=== PATIENT | male | born 1965 | race Caucasian/White ===

== ENCOUNTER 2016-10-05 08:05 | Day surgery (SDC) | payer BC ==
[2016-10-05] VITALS (12 sets, daily range): BP systolic 94–117; BP diastolic 59–72; PULSE 66–78; RESP 12–24; TEMP 97.6–97.9; O2SAT 93–100; Ht 177.8 cm; Wt 83.5 kg
[~2016-10-05] VITALS: Ht 177.8 cm; Wt 83.5 kg
[~2016-10-05 08:05] MED LIST: LIDOCAINE 1% (10mg/ml) 2ml SDV INJ ONE; LR 1,000 ML IV SCH; MELA3TAB30 PO; METF500T7 PO; MULT-933 PO; TOPI25TA64 PO; VILA40TA PO; ZOLP10TA6 PO
--- OUTSIDE RECORDS SUMMARY | 2016-10-05 08:09 | XMS REPORT | Continuity of Care Document ---
Author Author [facility] Organization [facility] Address Unknown Phone Unavailable Allergies Active Description Code Type Severity Reaction Onset Reported/Identified Relationship to Patient Clinical Status Yes No Known Allergies NKMA N/A N/A 08/13/2014 Medications Problems Procedures Results Encounters ACCT No. Visit Date/Time Discharge Status Pt. Type Provider Facility Loc./Unit Complaint [id number] 08/01/2013 09:56:00 08/01/2013 23 :59:59 CLS Outpatient
--- OUTSIDE RECORDS SUMMARY | 2016-10-05 08:09 | XMS REPORT | Referral Summary ---
Author Organization Unknown Address Unknown Phone Unavailable Care Team Providers Care Hobbing Machine Operator Name Role Phone Jani Lawrence Primary Care Physician [phone] Encounter VC Date(s): 08/18/14 - 08/18/14 [facility] [address] [place] [id number] Discharge Diagnosis: Bipolar disorder Discharge Diagnosis: ED (erectile dysfunction) Discharge Diagnosis: BPH NOS w/o ur obs/LUTS Discharge Diagnosis: URINARY FREQUENCY Discharge Disposition: Home or Self Care Attending Physician: Vinay Lawrence MD Admitting Physician: Vinay Lawrence MD Vital Signs Most recent to 1 oldest [Reference Range]: Temperature Tympanic 36.4 degC [36.6-38.1 degC] *LOW* (08/18/14 2:52 PM) Peripheral Pulse 96 bpm Rate [60-100 bpm] (08/18/14 2:52 PM) Respiratory Rate 16 br/min [14-20 br/min] (08/18/14 2:52 PM) Blood Pressure 134/90 mmHg [90-140/60-90 mmHg] (08/18/14 2:52 PM) Problem List No data available for this section Allergies, Adverse Reactions, Alerts No Known Allergies Medications Cialis 5 mg oral tablet 1 tabs, Oral, Daily, # 30 tabs, 0 Refill(s), samples given to patient (Rx) Start Date: 08/18/14 Status: Ordered Invega 3 mg oral tablet, extended release 1 tabs, Oral, qAM, # 30 tabs, 0 Refill(s) Start Date: 08/18/14 Status: Ordered Results Urinalysis Most recent to 1 oldest [Reference Range]: UA Color Yellow (08/18/14 3:00 PM) UA Appear Clear (08/18/14 3:00 PM) UA pH [5.0-8.0] 6.0 (08/18/14 3:00 PM) UA Leuk Est Negative [Negative] (08/18/14 3:00 PM) UA Nitrite Negative [Negative] (08/18/14 3:00 PM) UA Protein Negative [Negative] (08/18/14 3:00 PM) UA Glucose Negative [Negative] (08/18/14 3:00 PM) UA Ketones Negative [Negative] (08/18/14 3:00 PM) UA Urobilinogen 0.2 mg/dL (08/18/14 3:00 PM) UA Bili [Negative] Negative (08/18/14 3:00 PM) UA Blood Negative (08/18/14 3:00 PM) UA Spec Grav 1.015 [1.003-1.030] (08/18/14 3:00 PM) Type Clean Catch (08/18/14 3:00 PM) Immunizations No data available for this section Procedures No data available for this section Social History Social History Type Response Smoking Status Never smoker Assessment and Plan Extracted from: Title: Ambulatory Patient Education Author: Vinay Lawrence MD Date: Family Medicine Urinary Frequency The number of times a normal person urinates depends upon how much liquid they take in and how much liquid they are losing. If the temperature is hot and there is high humidity then the person will sweat more and usually breathe a little more frequently. These factors decrease the amount of frequency of urination that would be considered normal. The amount you drink is easily determined, but the amount of fluid lost is sometimes more difficult to calculate. Fluid is lost in two ways: Sensible fluid loss is usually measured by the amount of urine that you get rid of. Losses of fluid can also occur with diarrhea. Insensible fluid loss is more difficult to measure. It is caused by evaporation. Insensible loss of fluid occurs through breathing and sweating. It usually ranges from a little less than a quart to a little more than a quart of fluid a day. In normal temperatures and activity levels the average person may urinate 4 to 7 times in a 24-hour period. Needing to urinate more often than that could indicate a problem. If one urinates 4 to 7 times in 24 hours and has large volumes each time, that could indicate a different problem from one who urinates 4 to 7 times a day and has small volumes. The time of urinating is also an important. Most urinating should be done during the waking hours. Getting up at night to urinate frequently can indicate some problems. CAUSES The bladder is the organ in your lower abdomen that holds urine. Like a balloon , it swells some as it fills up. Your nerves sense this and tell you it is time to head for the bathroom. There are a number of reasons that you might feel the need to urinate more often than usual. They include: Urinary tract infection. This is usually associated with other signs such as burning when you urinate. In men, problems with the prostate (a walnut-size gland that is located near the tube that carries urine out of your body). There are two reasons why the prostate can cause an increased frequency of urination: An enlarged prostate that does not let the bladder empty well. If the bladder only half empties when you urinate then it only has half the capacity to fill before you have to urinate again. The nerves in the bladder become more hypersensitive with an increased size of the prostate even if the bladder empties completely. . Obesity. Excess weight is more likely to cause a problem for women more than for men. Bladder stones or other bladder problems. Caffeine. Alcohol. Medications. For example, drugs that help the body get rid of extra fluid ( diuretics ) increase urine production. Some other medicines must be taken with lots of fluids. Muscle or nerve weakness. This might be the result of a spinal cord injury , a stroke, multiple sclerosis or Parkinson's disease. Long-standing diabetes can decrease the sensation of the bladder. This loss of sensation makes it harder to sense the bladder needs to be emptied. Over a period of years the bladder is stretched out by constant overfilling. This weakens the bladder muscles so that the bladder does not empty well and has less capacity to fill with new urine. Interstitial cystitis (also called painful bladder syndrome). This condition develops because the tissues that line the insider of the bladder are inflamed (inflammation is the body's way of reacting to injury or infection). It causes pain and frequent urination. It occurs in women more often than in men. DIAGNOSIS To decide what might be causing your urinary frequency, your healthcare provider will probably: Ask about symptoms you have noticed. Ask about your overall health. This will include questions about any medications you are taking. Do a physical examination. Order some tests. These might include: A blood test to check for diabetes or other health issues that could be contributing to the problem. Urine testing. This could measure the flow of urine and the pressure on the bladder. A test of your neurological system (the brain, spinal cord and nerves). This is the system that senses the need to urinate. A bladder test to check whether it is emptying completely when you urinate. Cytoscopy. This test uses a thin tube with a tiny camera on it. It offers a look inside your urethra and bladder to see if there are problems. Imaging tests. You might be given a contrast dye and then asked to urinate. X-rays are taken to see how your bladder is working. TREATMENT It is important for you to be evaluated to determine if the amount or frequency that you have is unusual or abnormal. If it is found to be abnormal the cause should be determined and this can usually be found out easily. Depending upon the cause treatment could include medication, stimulation of the nerves, or surgery. There are not too many things that you can do as an individual to change your urinary frequency. It is important that you balance the amount of fluid intake needed to compensate for your activity and the temperature. Medical problems will be diagnosed and taken care of by your physician. There is no particular bladder training such as Kegel's exercises that you can do to help urinary frequency. This is an exercise this is usually done for people who have leaking of urine when they laugh cough or sneeze. HOME CARE INSTRUCTIONS Take any medications your healthcare provider prescribed or suggested. Follow the directions carefully. Practice any lifestyle changes that are recommended. These might include: Drinking less fluid or drinking at different times of the day. If you need to urinate often during the night, for example, you may need to stop drinking fluids early in the evening. Cutting down on caffeine or alcohol. They both can make you need to urinate more often than normal. Caffeine is found in coffee, tea and sodas. Losing weight, if that is recommended. Keep a journal or a log. You might be asked to record how much you drink and when and when you feel the need to urinate. This will also help evaluate how well the treatment provided by your physician is working. SEEK MEDICAL CARE IF: Your need to urinate often gets worse. You feel increased pain or irritation when you urinate. You notice blood in your urine. You have questions about any medications that your healthcare provider recommended. You notice blood, pus or swelling at the site of any test or treatment procedure. You develop a fever of more than 100.5 F (38.1 C). SEEK IMMEDIATE MEDICAL CARE IF: You develop a fever of more than 102.0 F (38.9 C). Document Released: 03/25/2010 Document Revised: 08/20/2012 Document Reviewed: [facility] Patient Information 2014 [employer]. No follow up information was provided. Extracted from: Title: Office Visit Note Author: Vinay Lawrence MD Date: 08/18/14 Assessment/Plan Bipolar disorder She will continue to follow with his psychiatrist no change in his treatment recommended Ordered: Office Visit Level 4 Est 43481 BPH NOS w/o ur obs/LUTS He has some symptoms suggestive of BPH and has a mildly enlarged prostate on exam. I did give him samples of Cialis 5 mg a day since he's having some PD problems as well we'll see how this works. Ordered: Office Visit Level 4 Est 56945 ED (erectile dysfunction) Cialis 5 mg daily samples given for a month. Keep me posted on how it is doing. Ordered: Office Visit Level 4 Est 08826 URINARY FREQUENCY UA obtained. Laboratory studies ordered. We'll see if this improves on the Cialis. Ordered: Office Visit Level 4 Est 18214 Orders: tadalafil, 1 tabs, Oral, Daily, # 30 tabs, 0 Refill(s), samples given to patient (Rx)
--- OUTSIDE RECORDS SUMMARY | 2016-10-05 08:09 | XMS REPORT | Continuity of Care Document ---
Author Author Karime Cantu [facility] Address Unknown Phone Unavailable Payers Payer name Insurance type Covered libertarian ID Authorization(s) Unknown Problems Condition Effective Dates (start - stop) Clinical Status Final Inspection Supervisor's permit PE (physical examination) - *Routine Bipolar 1 disorder - *Stable Family History Family Member Diagnosis Age At Onset Status Unknown Social History Social History Element Description Quantity Unknown Allergies, Adverse Reactions, Alerts Substance Reaction Severity Status Unknown Medications Medication Instructions Dosage Effective Dates (start - stop) Status Latuda 40 mg tablet take 1 tablet (40MG) by oral route every day with food ( at least 350 calories) 40 MG - Active Immunizations Vaccine Date Status Comments Unknown Results Test Name Date and Time Measure Units Reference Range Abnormal Flag Comments Panel Description: Urinalysis-Dipstick Site. 09:55:00 MID Color 09:55:00 Straw Clarity 09:55:00 Clear Specific [place]-C 09:55:00 1.020 1.005-1.025 pH-C 09:55:00 6 5.0-8.0 Leukocytes-C 09:55:00 neg Ze/uL Negative Nitrites-C 09:55:00 neg Negative Protein-C 09:55:00 neg mg/dL Negative KC-Wggjshi-A 09:55:00 norm mg/dL Normal Ketones-C 09:55:00 neg mg/dL Negative Urobilinogen-C 09:55:00 norm mg/dL Normal Bilirubin-C 09:55:00 neg mg/dL Negative Blood-C 09:55:00 neg Cuauhtemoc/uL Negative Vital Signs Date / Time: Height Weight Pulse Rate Blood Pressure Temperature /09:59:00 70.00 in 209.00 lbs 84 /min 118/78 mm[Hg] 97.2 F Procedures Procedure Date Unknown Encounters Encounter Location Date Patient Visit [facility] Advance Directives Directive Effective Date Unknown
--- OUTSIDE RECORDS SUMMARY | 2016-10-05 08:09 | XMS REPORT | Referral Summary ---
Author Author [facility] Care Organization [facility] Address Unknown Phone Unavailable Care Team Providers Care Medical Affairs Manager Name Role Phone Jani Lawrence Primary Care Physician [phone] Encounter VC Date(s): 05/19/15 - 05/19/15 [facility] [address] [place] [address]- Discharge Diagnosis: Cough Discharge Diagnosis: Viral bronchitis Discharge Diagnosis: Nasal congestion Discharge Disposition: 01-Home or Self Care Attending Physician: Dangelo Boo PA-C Admitting Physician: Dangelo Boo PA-C Vital Signs Most recent to 1 oldest [Reference Range]: Temperature Tympanic 36.6 degC [36.6-38.1 degC] (05/19/15 1:29 PM) Apical Heart Rate 101 bpm [60-100 bpm] *HI* (05/19/15 1:29 PM) Blood Pressure 124/78 mmHg [90-140/60-90 mmHg] (05/19/15 1:29 PM) SpO2 97 % (05/19/15 1:29 PM) Problem List Condition Effective Dates Status Health Status Informant Anxiety(Confirmed)1 Active Bipolar 1 Active disorder(Confirmed)2 Depression(Confirmed Active )3 1Via patient history form 2Via patient history form 3Via patient history form Allergies, Adverse Reactions, Alerts No Known Allergies Medications albuterol CFC free 90 mcg/inh inhalation aerosol 2 puffs, Inhalation, q6hr, as needed for wheezing, # 18 g, 0 Refill(s), Pharmacy : [facility] #[id number] Start Date: 05/19/15 Status: Ordered Ambien 10 mg oral tablet 10 mg 1 tabs, Oral, Bedtime (once a day), as needed for sleep, 0 Refill(s) Start Date: 05/19/15 Status: Ordered Cialis 5 mg oral tablet 1 tabs, Oral, Daily, # 30 tabs, 0 Refill(s), samples given to patient (Rx) Start Date: 08/18/14 Status: Ordered Fanapt 8 mg oral tablet mg tabs, Oral, BID, 0 Refill(s) Start Date: 05/19/15 Status: Ordered Results No data available for this section Immunizations No data available for this section Procedures No data available for this section Social History Social History Type Response Smoking Status Never smoker Assessment and Plan Extracted from: Title: sinus, cough Author: Dangelo Boo PA-C Date: 05/19/15 Assessment/Plan Cough Recommend supportive care. Rest. Practice good hand hygiene. Increase fluids. Ibuprofen as needed for fever or pain. Questions were answered. Patient verbalized understanding. Patient left in stable condition. Nasal congestion Diagnosis and treatment discussed. Recommendedsaline rinses and sinus washes. Viral bronchitis I wanted the patient to have a breathing treatment while in office, he notes he was running late for workand declined the breathing treatment. We did go over proper inhaler use, he noted he did use it when his youth when over the proper technique. Patient would like to have her albuterol inhaler prescribed and this was done. If his symptoms significantly become worse, develops fever, then follow-up for reassessment. Patient advised to follow up with PCP in 2-3 days. Patient stable upon discharge, alert and orientated with no apparent distress, and indicated understanding of discharge instructions. If symptoms worsen at any time, patient will go and urgent care or to the nearest ER for further evaluation. Orders: albuterol, 2 puffs, Inhalation, q6hr, as needed for wheezing, # 18 g, 0 Refill(s), Pharmacy: [facility] #[id number]
[2016-10-05] MEDS ORDERED: FISH1CAP2 PO (08:54)
[2016-10-05] MEDS ORDERED: MELA1TAB16 PO (08:54)
[2016-10-05] MEDS ORDERED: FENTANYL 100mcg/2ml INJECTION ONE (10:05)
[2016-10-05] MEDS ORDERED: SALINE FLUSH 10ml SYRINGE ONE (10:05)
[2016-10-05] MEDS ORDERED: MIDAZOLAM 5mg/5ml INJECTION ONE (10:05)
[2016-10-05] MEDS ORDERED: MIDAZOLAM 5mg/5ml INJECTION IV PRN (10:10)
[2016-10-05] MEDS ORDERED: FENTANYL 100mcg/2ml INJECTION IV PRN (10:10)
[2016-10-05] MEDS ORDERED: DiphenhydrAMINE 50 MG/ML INJECTION IV ONE (10:24)
[2016-10-05] MEDS ORDERED: DiphenhydrAMINE 50 MG/ML INJECTION ONE (10:54)
--- NOTE | 2016-10-05 14:57 | OPNOTEF ---
DATE OF PROCEDURE: 10/05/2016 PHYSICIAN: Pito Nelson DO PROCEDURE: Colonoscopy. INDICATION FOR PROCEDURE Colorectal cancer screening. ASA CLASSIFICATION: 1 DESCRIPTION OF PROCEDURE Consent was signed and on the chart. Routine monitoring with ECG, continuous oximetry and noninvasive blood pressure was performed throughout the procedure and found to be within normal limits. IV sedation was performed with a total of 9 mg of Versed and 90 mcg of fentanyl. He was also given 50 mg of Benadryl. Prior to the procedure the patient was brought to the endoscopy lab where a brief review of his medical history and physical exam was performed. The procedure was described to him and he was agreeable to continue. All questions were answered. He was given IV sedation and placed in a left lateral decubitus position. A digital rectal exam revealed a normal-size and contour prostate - no masses. The colonoscope was introduced through the anal verge and advanced to the cecum. Upon reaching the cecum careful inspection of the mucosa was performed from the cecum through the ascending, transverse, descending, sigmoid colon and rectum. There were polyps, masses, lesions or diverticula. He tolerated the procedure well. There were no complications. IMPRESSION Normal colon. RECOMMENDATION Repeat colonoscopy in 10 years consistent with current colon cancer screening guidelines [facility]
== END 2016-10-05 12:17 | disposition home or self-care (01) ==
LOC: NSC 08:05
PROVIDERS: ATTEND Internal Medicine
DX: Z12.11 Encounter for screening for malignant neoplasm of colon (principal); E11.9 Type 2 diabetes mellitus without complications; F31.9 Bipolar disorder, unspecified; Z79.899 Other long term (current) drug therapy
CPT/HCPCS: 45378; 82948; J1200; J2250; J3010; J7120